=== PATIENT | female | born 1985 | race Two or more races ===

== ENCOUNTER 2017-02-26 05:30 | Inpatient (IN) | payer OTHER ==
[~2017-02-26] VITALS: Ht 152.4 cm; Wt 2.7 kg
[2017-02-26] MEDS ORDERED: PRENATAL TABLE1 EAC1 PO (06:48)
[2017-02-26] MEDS ORDERED: ALDOMET250 MG PO (06:49)
[2017-02-26] MEDS ORDERED: ZANTAC300 MG PO (06:50)
== END 2017-03-01 14:20 | DRG 766 ==
LOC: OB/GYN 05:30 → LDR 05:30 → O/R 12:51 → OB/GYN 13:02
PROVIDERS: Specialist
PROC: 0UB20ZZ Excision of Bilateral Ovaries, Open Approach (ICD-10-PCS; 2017-02-26)
PROC: 4A1HXCZ Monitoring of Products of Conception, Cardiac Rate, External Approach (ICD-10-PCS; 2017-02-26)
PROC: 10D00Z1 Extraction of Products of Conception, Low, Open Approach (ICD-10-PCS; principal; 2017-02-26 08:30)
DX: O10.013 Pre-existing essential hypertension complicating pregnancy, third trimester (principal); O34.83 Maternal care for other abnormalities of pelvic organs, third trimester; D27.1 Benign neoplasm of left ovary; D27.0 Benign neoplasm of right ovary; Z37.0 Single live birth; Z3A.39 39 weeks gestation of pregnancy